=== PATIENT | male | born 1990 | race Two or more races ===

== ENCOUNTER 2019-07-23 11:52 | Emergency (ER) | payer OTHER ==
[~2019-07-23] VITALS: Ht 188 cm; Wt 116.6 kg
[2019-07-23 12:08] VITALS: BP 131/83
== END 2019-07-23 12:34 | disposition home or self-care (01) ==
LOC: ER 11:57
DX: R06.02 Shortness of breath (principal); R07.89 Other chest pain; J45.909 Unspecified asthma, uncomplicated; F12.90 Cannabis use, unspecified, uncomplicated